=== PATIENT | female | born 1970 | race Caucasian/White ===

== ENCOUNTER 2016-06-18 18:25 | Emergency (ER) | payer OTHER ==
[~2016-06-18] VITALS: Ht 172.7 cm; Wt 162.4 kg
[~2016-06-18 18:25] MED LIST: CALCIPOTRIENE60 ML TOP; CARVEDILOL12.5 M1 PO; CLARITHROMYCIN500 M1 PO; CYMBALTA60 M1 PO; FOLIC ACID1 M1 PO; GUAIFENESIN-COD10 ML PO; LISINOPRIL30 M1 PO; LORAZEPAM0.5 M1 PO; LYRICA150 M1 PO; METHOTREXA25 MG/1 M5 SC; PANTOPRAZOLE SO40 M1 PO; PERCOCET 5-3251 EACH PO; PREDNISONE10 M2 PO; PREDNISONE50 M1 PO; PROMETHAZINE V118 M2 PO; PROVENTIL HFA6.7 GM INH; REMICADE100 MG IV; TESSALON PERLE100 M1 PO; VITAMIN D1000 UNIT PO; ZOLPIDEM TARTRAT5 M1 PO
[2016-06-18 18:27] VITALS: BP 124/74
--- NOTE | 2016-06-18 19:00 | ED UPPER/LOWER EXTREMITY COMPL ---
History of Present Illness General Chief Complaint: Lower Extremity Problems Stated Complaint: LOWER EXTREMITY PROBLEMS Source: patient Exam Limitations: no limitations Vital Signs & Intake/Output Vital Signs & Intake/Output Vital Signs Date Time Temp Pulse Resp B/P Pulse O2 O2 Flow FiO2 Ox Delivery Rate 06/18 1827 97.1 96 18 124/74 97 Room Air Allergies Coded Allergies: shellfish derived (Severe, VOMITING, FEVER, FLU LIKE SYMPTOMS SEVERELY, AND OUT OF IT 10/21/15) amitriptyline (Mild, HIVES 09/24/15) nabumetone (Mild, HIVES 09/24/15) Reconcile Medications Albuterol Sulfate (Proventil Hfa) 6.7 GM HFA.AER.AD 2 PUF INH Q4 PRN WHEEZING Calcipotriene 60 ML SOLUTION 1 ALEXIS TOP PRN PSORIATIC ARTHRITIS (Reported) Carvedilol 12.5 MG TABLET 1 TAB PO BID BP (Reported) Cholecalciferol (Vitamin D3) (Vitamin D) 1,000 UNIT TABLET 1 TAB PO DAILY SUPPLEMENT (Reported) Duloxetine HCl (Cymbalta) 60 MG CAPSULE.DR 1 CAP PO DAILY NERVE PAIN ( Reported) Folic Acid 1 MG TABLET 1 TAB PO DAILY SUPPLEMENT (Reported) Infliximab (Remicade) (Unknown Strength) VIAL (Unknown Dose) IV Q8W RA ( Reported) Lisinopril 30 MG TABLET 1 TAB PO DAILY BP (Reported) Lorazepam 0.5 MG TABLET 1 TAB PO TID PRN MUSCLE RELAXING (Reported) Methotrexate Sodium (Methotrexate) 25 MG/1 ML VIAL 0.5 ML SC QSUN RA ( Reported) Oxycodone HCl 5 MG TABLET 1 TAB PO BIDP PRN break through pain Oxycodone HCl/Acetaminophen (Percocet 5-325 MG Tablet) 1 EACH TABLET 1 TAB PO BID contusion Pantoprazole Sodium 40 MG TABLET.DR 1 TAB PO DAILY GI (Reported) Prednisone 10 MG TABLET 1 TAB PO D inflammation 4 tabs for 3 days 3 tabs for 3 days 2 tabs for 3 days One tab for 3 days Prednisone (Deltasone) 20 MG TABLET 1 TAB PO TID RA Pregabalin (Lyrica) 150 MG CAPSULE 1 CAP PO TID NERVE PAIN (Reported) Zolpidem Tartrate 5 MG TABLET 1 TAB PO QPM SLEEP (Reported) Triage Note: 45 YEAR OLD FEMALE TO ER WITH COMPLAINTS OF INCREASED BILATERAL KNEE PAIN. PT HAS HISTORY OF RA AND GOES TO PAIN MANAGEMENT BUT THE PERCOCET IS NOT HELPING Triage Nurses Notes Reviewed? yes Onset: Abrupt Duration: constant, getting worse Timing: recent history Severity: severe No Modifying Factors: none : No Patient currently breastfeeds: No HPI: 45-year-old female with a history of rheumatoid arthritis comes into the emergency room with chronic bilateral knee pain. Patient reports that she has had knee pain issues for 3 years but has had increasingly worsening symptoms over last 3 months. Denies any recent falls or trauma. Denies any redness swelling. Patient is on Remicade methotrexate Lyrica and Percocet for her pain. Patient reports today she works 7 hours and the pain was just excruciating at the end of her shift. Nonradiating. Continuous. Worse with any ambulation. (JOANNE NAVARRO) Past History Travel History Traveled to [facility] past 21 day No Medical History Any Pertinent Medical History? 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 No (JOANNE NAVARRO) Review of Systems Review of Systems Constitutional: Reports: no symptoms. EENTM: Reports: no symptoms. Respiratory: Reports: no symptoms. Cardiovascular: Reports: no symptoms. Gastrointestinal/Abdominal: Reports: no symptoms. Genitourinary: Reports: no symptoms. Musculoskeletal: Reports: see HPI. Skin: Reports: no symptoms. Neurological/Psychological: Reports: no symptoms. Hematologic/Endocrine: Reports: no symptoms. Immunological: Reports: no symptoms. All Other Systems: Reviewed and Negative (JOANNE NAVARRO) Physical Exam Physical Exam General Appearance: mild distress, obese Head: atraumatic Eyes: Bilateral: normal appearance. Ears, Nose, Throat: normal ENT inspection, hearing grossly normal Neck: normal inspection Cardiovascular/Respiratory: no respiratory distress Back: normal inspection Knee Left: soft tissue tenderness, limited range of motion Knee Right: soft tissue tenderness, limited range of motion Neurologic/Tendon: normal sensation, normal motor functions, normal tendon functions, responds to pain, no evidence tendon injury, no pulse deficit Skin: intact, normal color, warm/dry Lymphatic: no anterior cervical chivo (JOANNE NAVARRO) Progress Differential Diagnosis: arterial insufficiency, cellulitis, contusion, dislocation, fracture, gout, septic arthritis, sprain, osteoarthritis, rheumatoid arthritis, Plan of Care: Current Medications Sig/Pam Start time Last Medication Dose Stop Time Status Admin Morphine Sulfate 4 MG ONCE ONE 06/18 1914 AC (Morphine) 06/18 1915 Prednisone 60 MG ONCE ONE 06/18 1914 AC 06/18 1915 Comments: 06/18/2016 7:06:56 PM 10- 15 minutes spent at bedside discussing plan of care. Patient has chronic arthritic issues. I explained to them I do not feel x-rays are 100% necessary at this time due to no recent trauma or falls. No suspicion for fracture. I offered x-rays to patient but she agrees with my plan of care and decline. Patient be started on some high-dose prednisone as well as some breakthrough pain medication. 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 Return to the emergency room immediately if any other concerns worsening symptoms. Patient understands and agrees with plan of care. (JOANNE NAVARRO) Departure Departure Disposition: HOME OR SELF CARE Condition: Stable Clinical Impression Primary Impression: Rheumatoid arthritis Secondary Impressions: Chronic pain of both knees Referrals: DEAN LOVE,KIERRA Bliss (PCP/Family) RUFINO LOVE,RAVINDER Jones Additional Instructions: TAKE PREDNISONE AND OXYCODONE PRESCRIBED. fOLLOW-UP WITH YOUR EXPANDER WELL ORTHOPEDIC DOCTOR PROVIDED. Return to the emergency room immediately if any other concerns worsening symptoms. Please go over all results of today's visit with your primary care doctor. Contact your primary care doctor to let them know you were here in the emergency room. There may be nonspecific findings which may not be related to your visit today here in the emergency room but may require further evaluation and chronic monitoring by your primary care doctor. If you had a laceration today the chance of foreign body always remains. You should follow-up with your primary care doctor for recheck in 3-5 days for a wound check. If you had an x-ray done there is a chance that a fracture could have been missed on initial read and you should follow-up with your primary care doctor for repeat x-rays if symptoms persist. If your blood pressure was elevated here in the emergency room please have rechecked by her primary care doctor within the next 48 hours by your primary care doctor. If you were prescribed a narcotic here in the emergency room or any type of controlled substances you're not allowed to drive while taking this medication or operate any type of heavy machinery. Narcotics can make you feel lightheaded dizziness nausea and can cause constipation. You may need to pick out hand a stool softener. Thank you for choosing [facility] emergency room. Please return to the emergency room immediately if you have any other concerns worsening of symptoms. Departure Forms: Customer Survey General Discharge Information Prescriptions: Current Visit Scripts Oxycodone HCl 1 TAB PO BIDP PRN break through pain #20 TAB Prednisone (Deltasone) 1 TAB PO TID #12 MG (JOANNE NAVARRO) PA/PUMPER GAGER APPRENTICE Co-Sign Statement Statement: ED Attending supervision documentation- [] I saw and evaluated the patient. I have also reviewed all the pertinent lab results and diagnostic results. I agree with the findings and the plan of care as documented in the PA's/PUMPER GAGER APPRENTICE's documentation. [X] I have reviewed the ED Record and agree with the PA's/PUMPER GAGER APPRENTICE's documentation. [] Additions or exceptions (if any) to the PAs/PUMPER GAGER APPRENTICE's note and plan are summarized below: [] (DEYANIRA LOVE,HAN Sow)
[2016-06-18] MEDS ORDERED: DELTASONE20 MG PO (19:03)
[2016-06-18] MEDS ORDERED: OXYCODONE HCL5 M1 PO (19:03)
== END 2016-06-18 19:24 ==
LOC: ERH 18:25
DX: M06.9 Rheumatoid arthritis, unspecified (principal); M25.561 Pain in right knee; M25.562 Pain in left knee
CPT/HCPCS: 96372

== ENCOUNTER 2016-06-27 19:26 | Emergency (ER) | payer OTHER ==
[~2016-06-27] VITALS: Ht 172.7 cm; Wt 158.8 kg
[~2016-06-27 19:26] MED LIST changes: +DELTASONE20 MG PO; +OXYCODONE HCL5 M1 PO
[2016-06-27] MEDS ORDERED: OXYCODONE-ACET1 EACH PO (20:36)
--- NOTE | 2016-06-27 20:43 | ED UPPER/LOWER EXTREMITY COMPL ---
History of Present Illness General Chief Complaint: Lower Extremity Problems Stated Complaint: LEFT LEG PAIN AND SWELLING Source: patient Exam Limitations: no limitations Vital Signs & Intake/Output Vital Signs & Intake/Output Vital Signs Date Time Temp Pulse Resp B/P Pulse O2 O2 Flow FiO2 Ox Delivery Rate 06/27 2310 98.3 100 20 152/98 100 Room Air 06/27 2141 100 Room Air 06/27 1944 96.8 96 20 157/79 100 Room Air ED Intake and Output 06/28 0000 06/27 1200 Intake Total Output Total Balance Patient 350 lb Weight Allergies Coded Allergies: shellfish derived (Severe, VOMITING, FEVER, FLU LIKE SYMPTOMS SEVERELY, AND OUT OF IT 10/21/15) amitriptyline (Mild, HIVES 09/24/15) nabumetone (Mild, HIVES 09/24/15) Reconcile Medications Albuterol Sulfate (Proventil Hfa) 6.7 GM HFA.AER.AD 2 PUF INH Q4 PRN WHEEZING Calcipotriene 60 ML SOLUTION 1 ALEXIS TOP PRN PSORIATIC ARTHRITIS (Reported) Carvedilol 12.5 MG TABLET 1 TAB PO BID BP (Reported) Cephalexin (Keflex) 500 MG CAPSULE 1 CAP PO BID CELLULITIS Cholecalciferol (Vitamin D3) (Vitamin D) 1,000 UNIT TABLET 1 TAB PO DAILY SUPPLEMENT (Reported) Duloxetine HCl (Cymbalta) 60 MG CAPSULE.DR 1 CAP PO DAILY NERVE PAIN ( Reported) Folic Acid 1 MG TABLET 1 TAB PO DAILY SUPPLEMENT (Reported) Infliximab (Remicade) (Unknown Strength) VIAL (Unknown Dose) IV Q6W RA ( Reported) Lisinopril 30 MG TABLET 1 TAB PO DAILY BP (Reported) Methotrexate Sodium (Methotrexate) 25 MG/1 ML VIAL 0.3 ML SC QTHURS RA ( Reported) Oxycodone HCl/Acetaminophen (Oxycodone-Acetaminophen 5-325) 5 MG-325 MG TABLET 1 TAB PO Q8H PRN PAIN (Reported) Pantoprazole Sodium 40 MG TABLET.DR 1 TAB PO PRN GI (Reported) Pregabalin (Lyrica) 150 MG CAPSULE 1 CAP PO TID NERVE PAIN (Reported) Sulfamethoxazole/Trimethoprim (Bactrim 400-80 MG Tablet) 400 MG-80 MG TABLET 1 TAB PO BID CELLULITIS Triage Note: PT TO ED C/O INCREASED LEFT LEG SWELLING AND PAIN, GETTING WORSE OVER THE LAST WEEK. PMH OF LYMPHEDEMA. PAIN GOES UP TO GROIN. STATES REDNESS AND THICK SKIN TO CALF AREA. HAS HEALING WOULD TO LEFT ANTERIOR LOWER LEG FROM WOUND 2 YEARS AGO. AFEBRILE IN TRIAGE. STATES FEVERS AT HOME THIS WEEK UP TO 101 Triage Nurses Notes Reviewed? yes Onset: Gradual Duration: getting worse Timing: recent history Severity: moderate Severity Numbers: 5 No Modifying Factors: none : No Patient currently breastfeeds: No HPI: Patient is a 45-year-old female with past medical history of rheumatoid arthritis currently on immunomodulators Remicade, a history of lower extremity lymphedema and significant cellulitis and infections patient states that 3 months ago while shaving her left lateral aspect of her lower leg she cut her skin and which resulted in a wound that has been healing slowly however in the past 7 days she has noted redness and mild tenderness around the ulcer site. Patient also noted worsening below the knee and above the ankle left-sided swelling. Patient does note of a one-week history of fevers resolve with Tylenol. (LAMAR ZAVALA) Past History Travel History Traveled to [place] past 21 day No Medical History Any Pertinent Medical History? 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 No (LAMAR ZAVALA) Review of Systems Review of Systems Constitutional: Reports: see HPI, fever. EENTM: Reports: no symptoms. Respiratory: Reports: no symptoms. Cardiovascular: Reports: see HPI, peripheral edema. Gastrointestinal/Abdominal: Reports: no symptoms. Genitourinary: Reports: no symptoms. Musculoskeletal: Reports: no symptoms. Skin: Reports: see HPI, erythema. Neurological/Psychological: Reports: no symptoms. Hematologic/Endocrine: Reports: no symptoms. Immunological: Reports: no symptoms. All Other Systems: Reviewed and Negative (LAMAR ZAVALA) Physical Exam Physical Exam General Appearance: no apparent distress, obese Neurologic/Tendon: normal sensation, normal motor functions, normal tendon functions, responds to pain, no evidence tendon injury, no pulse deficit Skin: intact Lymphatic: no anterior cervical chivo Comments: HEENT: Normal EENT exam, Neck: Supple, no lymphadenopathy, normal range of motion without pain or tenderness Back: Nontender, no CVA tenderness. Cardiovascular: Regular rate and rhythms no murmurs rubs or gallops, normal JVP Respiratory: Chest nontender. No respiratory distress.breath sounds clear to auscultation bilaterally Abdomen: Soft, nontender nondistended, no appreciable organomegaly. Normal bowel sounds. No ascites Extremity: Bilateral lower extremity dermatomes intact pedal pulse +2 Neuro: Alert oriented x3, motor sensory normal Skin: No appreciable rash on exposed skin, skin is warm and dry. Psych: Mood and affect is normal, memory and judgment is normal. Diagram Legs Front/Back 1) Moderate below the knee and above the ankle nonpitting edema 2) 5 cm x 5 cm tenderness warmth and erythema noted no fluctuance centralized well-healing ulcer ULCERATIVE SKIN SCAB noted (LAMAR ZAVALA) Progress Differential Diagnosis: arterial insufficiency, cellulitis, CHF, compartment syndrome, contusion, dislocation, DVT, fracture, gout, septic arthritis, sprain, tendon injury Plan of Care: Orders Procedure Date/time Status BLOOD CULTURE 06/27 2057 Active COMPREHENSIVE METABOLIC PANEL 06/27 2057 Complete CBC WITHOUT DIFFERENTIAL 06/27 2057 Complete Laboratory Tests 06/27/162139: Anion Gap 10, Estimated GFR > 60, BUN/Creatinine Ratio 12.9, Glucose 96, Calcium 9.3, Total Bilirubin 0.6, AST 43 H, ALT 85 H, Alkaline Phosphatase 160 H, Total Protein 7.0, Albumin 3.6, Globulin 3.4, Albumin/Globulin Ratio 1.1, CBC w Diff NO MAN DIFF REQ, RBC 3.85 L, MCV 98.8, MCH 32.3 H, RDW 14.1, MPV 7.8, Gran % 56.1, Lymphocytes % 29.7, Monocytes % 8.5, Eosinophils % 5.1 H, Basophils % 0.6, Absolute Granulocytes 3.3, Absolute Lymphocytes 1.8, Absolute Monocytes 0.5, Absolute Eosinophils 0.3, Absolute Basophils 0, PUBS MCHC 32.7 L Microbiology 06/27 2134 BLOOD: Blood Culture - RECD 06/28 2119 BLOOD: Blood Culture - RECD At this time patient is nontoxic-appearing afebrile and has no concerns of lower extremity DVT patient has no pedal edema patient is neurovascularly intact of lower extremity. Patient however does have an extensive history of lower extremity infections and which she was given Unasyn in the ER no fever or leukocytosis noted at this time. Patient was strongly advised to return to the emergency room in 2 days for wound recheck and she will comply. Surgical pen markings boarded the area and the borders of the cellulitis to left lower extremity. (LAMAR ZAVALA) Departure Departure Disposition: HOME OR SELF CARE Condition: Stable Clinical Impression Primary Impression: Cellulitis of leg Referrals: PATIENT HAS NO PRIMARY CARE DR (PCP/Family) Additional Instructions: As discussed begin the prescription of Bactrim and Keflex as directed tomorrow as YOU HAVE received antibiotics in the emergency room today. Begin to elevate THE foot for swelling. Return to the emergency room in 2 days for wound recheck. If symptoms worsen before return to emergency room immediately. Continue home medications as directed. If the redness expands significantly beyond the surgical pen markings of your redness applied today in the emergency room return to the emergency room immediately. Departure Forms: Customer Survey General Discharge Information Prescriptions: Current Visit Scripts Sulfamethoxazole/Trimethoprim (Bactrim 400-80 MG Tablet) 1 TAB PO BID #20 TAB Cephalexin (Keflex) 1 CAP PO BID #20 CAP (LAMAR ZAVALA) PA/SPARES SCHEDULER Co-Sign Statement Statement: ED Attending supervision documentation- [] I saw and evaluated the patient. I have also reviewed all the pertinent lab results and diagnostic results. I agree with the findings and the plan of care as documented in the PA's/SPARES SCHEDULER's documentation. [x] I have reviewed the ED Record and agree with the PA's/SPARES SCHEDULER's documentation. [] Additions or exceptions (if any) to the PAs/SPARES SCHEDULER's note and plan are summarized below: [] (DAKSHA LOVE,ILA Jones)
[2016-06-27 21:50] LABS: ABSOLUTE BASOPHIL COUNT 0 /CUMM (0.0-0.2); ABSOLUTE EOSINOPHIL COUNT 0.3 /CUMM (0.0-0.7); ABSOLUTE GRANULOCYTE CT 3.3 /CUMM (1.4-6.5); WHITE BLOOD CELL COUNT 5.9 /CUMM (4.8-10.8)
[2016-06-27 21:58] LABS: ABSOLUTE LYMPH COUNT 1.8 /CUMM (1.2-3.4); ABSOLUTE MONOCYTE COUNT 0.5 /CUMM (0.10-0.60); BASOPHIL % 0.6 % (0.0-2.0); EOSINOPHIL % 5.1 % (0-5); GRANULOCYTE % 56.1 % (42.2-75.2); MEAN CORPUSCULAR HGB 32.3 PG (27.0-31.0); MEAN CORPUSCULAR HGB CONC 32.7 G/DL (33.0-37.0); MEAN CORPUSCULAR VOLUME 98.8 FL (81.0-99.0); MEAN PLATELET VOLUME 7.8 FL (7.4-10.4); PLATELET COUNT 333 /CUMM (130-400); RBC DISTRIBUTION WIDTH 14.1 % (11.5-14.5); RED BLOOD CELL CT 3.85 /CUMM (4.20-5.40)
[2016-06-27] MEDS ORDERED: KEFLEX500 M1 PO (22:38)
[2016-06-27] MEDS ORDERED: BACTRIM 400-801 EACH PO (22:38)
[2016-06-27 23:10] VITALS: BP 152/98
== END 2016-06-27 23:04 ==
LOC: ERH 19:26
PROVIDERS: Physician Assistant
DX: L03.116 Cellulitis of left lower limb (principal)
CPT/HCPCS: 87040; 96365

== ENCOUNTER 2016-08-11 17:12 | Emergency (ER) | payer OTHER ==
[~2016-08-11] VITALS: Ht 172.7 cm; Wt 158.8 kg
[~2016-08-11 17:12] MED LIST changes: +BACTRIM 400-801 EACH PO; +KEFLEX500 M1 PO; +OXYCODONE-ACET1 EACH PO
[2016-08-11 18:03] VITALS: BP 162/83
--- NOTE | 2016-08-11 19:00 | RADIOLOGY REPORT ---
EXAMINATION: XR KNEE, RIGHT CLINICAL INFORMATION: Knee injury COMPARISON: None TECHNIQUE: 5 of the right knee. FINDINGS: There is evidence of degenerative change. No convincing evidence for an acute fracture or dislocation. IMPRESSION: Degenerative changes. No fracture or dislocation is seen. Small effusion is present.
--- NOTE | 2016-08-11 19:20 | ED UPPER/LOWER EXTREMITY COMPL ---
History of Present Illness General Chief Complaint: Lower Extremity Problems Stated Complaint: R KNEE PAIN Source: patient, old records Exam Limitations: no limitations Vital Signs & Intake/Output Vital Signs & Intake/Output Vital Signs Date Time Temp Pulse Resp B/P B/P Pulse O2 O2 Flow FiO2 Mean Ox Delivery Rate 08/11 1803 97.6 97 18 162/83 96 Room Air Allergies Coded Allergies: shellfish derived (Severe, VOMITING, FEVER, FLU LIKE SYMPTOMS SEVERELY, AND OUT OF IT 10/21/15) amitriptyline (Mild, HIVES 09/24/15) nabumetone (Mild, HIVES 09/24/15) Reconcile Medications Albuterol Sulfate (Proventil Hfa) 6.7 GM HFA.AER.AD 2 PUF INH Q4 PRN WHEEZING Calcipotriene 60 ML SOLUTION 1 ALEXIS TOP PRN PSORIATIC ARTHRITIS (Reported) Carvedilol 12.5 MG TABLET 1 TAB PO BID BP (Reported) Cephalexin (Keflex) 500 MG CAPSULE 1 CAP PO BID CELLULITIS Cholecalciferol (Vitamin D3) (Vitamin D) 1,000 UNIT TABLET 1 TAB PO DAILY SUPPLEMENT (Reported) Duloxetine HCl (Cymbalta) 60 MG CAPSULE.DR 1 CAP PO DAILY NERVE PAIN ( Reported) Folic Acid 1 MG TABLET 1 TAB PO DAILY SUPPLEMENT (Reported) Infliximab (Remicade) (Unknown Strength) VIAL (Unknown Dose) IV Q6W RA ( Reported) Lisinopril 30 MG TABLET 1 TAB PO DAILY BP (Reported) Methotrexate Sodium (Methotrexate) 25 MG/1 ML VIAL 0.3 ML SC QTHURS RA ( Reported) Oxycodone HCl/Acetaminophen (Oxycodone-Acetaminophen 5-325) 5 MG-325 MG TABLET 1 TAB PO Q8H PRN PAIN (Reported) Pantoprazole Sodium 40 MG TABLET.DR 1 TAB PO PRN GI (Reported) Pregabalin (Lyrica) 150 MG CAPSULE 1 CAP PO TID NERVE PAIN (Reported) Sulfamethoxazole/Trimethoprim (Bactrim 400-80 MG Tablet) 400 MG-80 MG TABLET 1 TAB PO BID CELLULITIS Triamcinolone Acetonide 0.1 % OINT...G. 1 ALEXIS TOP BID dermatitis apply to affected area(s) Triage Note: PT TO TRIAGE WITH C/O R KNEE PAIN, R KNEE POPPED OUT TODAY, ALSO HX OF ARTHRITIS. PT TOOK PERCOCET, TYLENOL WITH NO PAIN RELIEF. PAIN 10/10. Triage Nurses Notes Reviewed? yes Onset: Abrupt Duration: day(s): (1), constant Timing: recent history Severity: moderate, severe Severity Numbers: 10 Pain/Injury Location: Right: Knee. Method of Injury: twisted Modifying Factors: Improves With: pain medication, rest. Worsens With: movement. Associated Symptoms: none HPI: 46 year old female with history of RA presents emergency room complaining of sharp severe sudden onset right knee pain after she states she twisted and felt her knee pop earlier today. She took Percocet without any improvement. Pain is 10 out of 10 she denies a numbness or tingling no hip foot or ankle pain. There is no other injury. She states she's had problems with her knees in the past and has been seen by orthopedic physicians. She denies fever chills redness warmth or rashes to her skin no chest pain or shortness of breath PT TO TRIAGE WITH C/O R KNEE PAIN, R KNEE POPPED OUT TODAY, ALSO HX OF ARTHRITIS. PT TOOK PERCOCET, TYLENOL WITH NO PAIN RELIEF. PAIN 10/10. (LAMAR SCHULER) Past History Travel History Traveled to [place] past 21 day No Medical History Any Pertinent Medical History? 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 No (LAMAR SCHULER) Review of Systems Review of Systems Constitutional: Reports: see HPI. All Other Systems: Reviewed and Negative Comments Review of systems: See HPI, All other systems negative. Constitutional, no chills no fever, no malaise no weight loss HEENT: No visual changes no sore throat no congestion, no ear pain Cardiovascular: No chest pain , no palpitation , no orthopnea Skin: no rashes, no change in skin Respiratory: No dyspnea no cough no sputum no hemoptysis GI: No nausea no vomiting, no diarrhea, no bloating/constipation : No dysuria No hematuria, no frequency, no discharge Muscle skeletal: No joint pain, no joint swelling, no back pain, no neck pain, Neurologic: No numbness no confusion, no headache Psych: No stress no depression,. Heme/endocrine: No bruising no bleeding Immunology: No lymphadenopathy (LAMAR SCHULER) Physical Exam Physical Exam General Appearance: well developed/nourished, no apparent distress, alert Comments: obese female in no apparent distress. HEENT: Atraumatic, extraocular motion intact Neck: Supple, FROM Back: FROM Cardiovascular: Regular rate and rhythms no murmurs rubs or gallops, Respiratory: Chest nontender.There were no bony deformities, no asymmetry. No respiratory distress. Patient speaking in full complete sentences. Breath sounds clear to auscultation bilaterally: NO W/R/R Upper Extremities: full range of motion Hip/Pelvis: Atraumatic/Stable. FROM. No pain with pelvic compression Knee: Atraumatic/stable. FROM. No joint swelling, no effusion. No laxity. Negative philly/anterior drawer test. No pain with ROM no overlying ecchymosis or erythema Leg: Atraumatic. Nontender. No edema, 5 out of 5 strength in the lower extremity, normal dorsiflexion of great toe bilaterally, gross sensation is intact, patellar tendon reflex 2+ bilaterally. Ankle/Foot: Atraumatic/stable. Skin intact. FROM. No swelling, no effusion. No laxity on exam Pulses: Normal/equal DP/PT pulses bilaterally. Brisk cap refill Neuro: awake, alert, and oriented to person, place and time. There were no obvious focal neurologic abnormalities. Skin: Warm & dry;No appreciable rash on exposed skin Psych: Mood affect normal, normal memory normal judgment. (LAMAR SCHULER) Progress Differential Diagnosis: dislocation, DVT, fracture, gout, septic arthritis, sprain, tendon injury Plan of Care: Current Medications Sig/Pam Start time Last Medication Dose Stop Time Status Admin Morphine Sulfate 4 MG ONCE ONE 08/11 1929 UNVr (Morphine) 08/11 1930 X-rays ordered from triage. Discussed with patient her x-ray findings I discussed with the patient at length all of their results. I had an extensive conversation regarding need for close follow up with their primary care physician this week as well as return precautions. I answered all of their questions, they feel comfortable with the plan and follow-up care. I discussed the medications that they will receive with the patient. I gave them signs and symptoms that could indicate an adverse reaction. I have advised them to limit their activities until they can see how they respond to the medication. (LAMAR SCHULER) Diagnostic Imaging: Viewed by Me: Radiology Read. Discussed w/RAD: Radiology Read. Radiology Impression: PATIENT: SEBASTIAN MICHAEL PRESENT AGE: 46 PATIENT ACCOUNT NO: [id number] : 70 LOCATION: ER ORDERING PHYSICIAN: HECTOR MONDRAGON DO (TBS) SERVICE DATE: 08/11/16 EXAM TYPE: RAD - XRY-KNEE, RIGHT EXAMINATION: XR KNEE, RIGHT CLINICAL INFORMATION: Knee injury COMPARISON: None TECHNIQUE: 5 of the right knee. FINDINGS: There is evidence of degenerative change. No convincing evidence for an acute fracture or dislocation. IMPRESSION: Degenerative changes. No fracture or dislocation is seen. Small effusion is present. DICTATED BY: HECTOR LOPEZ MD DATE/TIME DICTATED:08/11/161854 CONVENTION MANAGER:TOMY DATE/TIME TRANSCRIBED:1854 CONFIDENTIAL, DO NOT COPY WITHOUT APPROPRIATE AUTHORIZATION. < Electronically signed in Other Vendor System> SIGNED BY: HECTOR LOPEZ MD 08/11/161899 (LAMAR SCHULER) Departure Departure Time of Disposition: 1927 Disposition: HOME OR SELF CARE Condition: Stable Clinical Impression Primary Impression: Knee sprain Referrals: ISAAC LOVE,NENITA PATIENT HAS NO PRIMARY CARE DR (PCP/Family) Additional Instructions: Rest ice Tylenol Motrin. Continue taking medications as prescribed and follow- up with orthopedist Dr. li this week. leg immobilizer as discussed. return with any concerns Triamcinolone cream as discussed for your rash. This was sent to [facility] Departure Forms: Customer Survey General Discharge Information Prescriptions: Current Visit Scripts Triamcinolone Acetonide 1 ALEXIS TOP BID #1 TUBE apply to affected area(s) (LAMAR SCHULER) PA/FACILITIES SPECIALIST Co-Sign Statement Statement: ED Attending supervision documentation- [] I saw and evaluated the patient. I have also reviewed all the pertinent lab results and diagnostic results. I agree with the findings and the plan of care as documented in the PA's/FACILITIES SPECIALIST's documentation. [X] I have reviewed the ED Record and agree with the PA's/FACILITIES SPECIALIST's documentation. [] Additions or exceptions (if any) to the PAs/FACILITIES SPECIALIST's note and plan are summarized below: [] (BEBO LOVE,YOLIS)
[2016-08-11] MEDS ORDERED: TRIAMCINOLONE A15 G3 TOP (19:28)
== END 2016-08-11 19:51 ==
LOC: ERH 17:12
DX: S83.91XA Sprain of unspecified site of right knee, initial encounter (principal); X58.XXXA Exposure to other specified factors, initial encounter; Y92.9 Unspecified place or not applicable; Y93.9 Activity, unspecified
CPT/HCPCS: 73560-RT; 96372

== ENCOUNTER 2017-11-09 11:05 | Emergency (ER) | payer OTHER ==
[~2017-11-09] VITALS: Ht 172.7 cm; Wt 161.0 kg
[~2017-11-09 11:05] MED LIST changes: +BENADRYL ALLERG25 M2 PO; +CORTISONE + COO28 GM EXT; +COSENTYX P150 MG/1 M SC; +FUROSEMIDE20 M1 PO; +IBUPROFEN800 M1 PO; +KEFLEX750 M1 PO; +LISINOPRIL20 M1 PO; +NYSTATIN100000 UNI PO; +PERCOCET 7.5-31 EACH PO; +SOMA250 M1 PO; +TRIAMCINOLONE A15 G3 TOP; +ZOFRAN ODT4 M1 SL
--- NOTE | 2017-11-09 11:30 | ED MVC/FALL/TRAUMA COMPLAINT ---
History of Present Illness General Chief Complaint: Fall Stated Complaint: FALL OUT OF BED Source: patient Exam Limitations: no limitations Vital Signs & Intake/Output Vital Signs & Intake/Output Vital Signs Date Time Temp Pulse Resp B/P B/P Pulse O2 O2 Flow FiO2 Mean Ox Delivery Rate 11/09 1323 Room Air 11/09 1314 97.8 61 16 130/66 99 Room Air 11/09 1108 97.2 72 20 116/73 95 Room Air Allergies Coded Allergies: shellfish derived (Severe, VOMITING, FEVER, FLU LIKE SYMPTOMS SEVERELY, AND OUT OF IT 01/11/17) amitriptyline (Mild, HIVES 01/11/17) nabumetone (Mild, HIVES 01/11/17) Triage Note: PT TO ED C/O LEFT SHOULDER, RIGHT PALM PAIN S/P FALLING OUT OF BED THIS MORNING. PT ALSO CONCERNED WITH WOUND ON BOTTOM OF LEFT FOOT FOUND BY PT'S BOYFRIEND THIS AM. DENIES HEADSTRIKE WITH FALLING OUT OF BED. DECLINING MEDS IN TRIAGE. Triage Nurses Notes Reviewed? yes Onset: Abrupt Timing: single episode today Severity: moderate Severity Numbers: 5 HPI: Patient is a 47-year-old female with past medical history of rheumatoid arthritis who presents emergency room stating that today patient rolled out of bed accidentally and fell approximately 2-3 feet to the floor resulting acute onset of left shoulder pain right wrist and hand pain patient also noted bleeding from the left foot Patient denies any head strike neck or back pain denies any abdominal pain chest pain or lower extremity pain. Patient's concern that she has blistering to the bottom of her left foot however denies any fever chills. (Damian Villarreal) Reconcile Medications Albuterol Sulfate (Proventil Hfa) 6.7 GM HFA.AER.AD 2 PUF INH Q4 PRN WHEEZING Calcipotriene 60 ML SOLUTION 1 ALEXIS TOP BID PRN PSORIATIC ARTHRITIS (Reported) Cholecalciferol (Vitamin D3) (Vitamin D) 1,000 UNIT TABLET 1 TAB PO DAILY SUPPLEMENT (Reported) Duloxetine HCl (Cymbalta) 60 MG CAPSULE.DR 1 CAP PO DAILY NERVE PAIN ( Reported) Folic Acid 1 MG TABLET 1 TAB PO DAILY SUPPLEMENT (Reported) Furosemide 20 MG TABLET 1 TAB PO DAILY BP (Reported) Lisinopril 20 MG TABLET 1 TAB PO DAILY HTN . Meloxicam (Mobic) 15 MG TABLET 1 TAB PO DAILY PRN pain Ondansetron (Zofran Odt) 4 MG TAB.RAPDIS 1 TAB SL TID PRN NAUSEA Oxycodone HCl/Acetaminophen (Percocet 7.5-325 MG Tablet) 7.5 MG-325 MG TABLET 1 TAB PO TID PRN PAIN (Reported) Pregabalin (Lyrica) 150 MG CAPSULE 1 CAP PO TID NERVE PAIN (Reported) Secukinumab (Cosentyx Pen) 150 MG/ML PEN.INJCTR 300 MG SC Q30D PSORIATIC ARTHRITIS (Reported) (Maxime Delgado DO) Past History Travel History Traveled to [place] past 21 day No Medical History Any Pertinent Medical History? 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 No (Damian Villarreal) Review of Systems Review of Systems Constitutional: Reports: see HPI. Eyes: Reports: no symptoms. Ears, Nose, Throat, Mouth: Reports: no symptoms. Respiratory: Reports: no symptoms. Cardiovascular: Reports: no symptoms. Gastrointestinal/Abdominal: Reports: no symptoms. Genitourinary: Reports: no symptoms. Musculoskeletal: Reports: see HPI. Skin: Reports: see HPI. Neurological/Psychological: Reports: see HPI. All Other Systems: Reviewed and Negative (Damian Villarreal) Physical Exam Physical Exam General Appearance: no apparent distress, obese Head: atraumatic Eyes: Bilateral: normal appearance, PERRL. Ears, Nose, Throat, Mouth: hearing grossly normal, moist mucous membrane Neck: normal inspection, full range of motion, no midline tenderness Respiratory: normal breath sounds, chest non-tender Cardiovascular: regular rate/rhythm Gastrointestinal: normal bowel sounds, non-tender Neurologic/Psych: no motor/sensory deficits, awake, alert Comments: Right shoulder normal inspection nontender Right elbow normal inspection nontender Right wrist generalized point tenderness noted limited range of motion Left shoulder normal inspection generalized point tenderness noted mild decreased active range of motion Left elbow wrist and hands normal inspection nontender Bilateral lower extremities myotomes dermatomes intact full active range of motion nontender Diagram Feet, Bilateral: 1) Noted 5 mm well-healing ecchymotic skin blister 2) Noted partial tear of a skin blister with dried blood no surrounding erythema or warmth or tenderness Core Measures ACS in differential dx? No CVA/TIA Diagnosis No Sepsis Present: No Sepsis Focused Exam Completed? No (Elvi BALDWIN,Damian) Progress Differential Diagnosis: aoritic dissection, abd injury, C/T/L spine injury, ext injury, ICH, pelvis injury, pnemothorax, spinal cord injury Plan of Care: Current Medications Sig/Pam Start time Last Medication Dose Stop Time Status Admin Ibuprofen 600 MG ONCE ONE 11/09 1244 UNVr (Motrin) 11/09 124 Patient will be x-rayed for where she was point tenderness on exam The left foot was irrigated with sterile water and peroxide, Telfa and bandage was applied X-rays were unremarkable for osseous injury wrist splint was applied to the right wrist Pre-and post neurovascular was intact Patient will follow up with her established orthopedic doctor Diagnostic Imaging: Viewed by Me: Radiology Read. Radiology Impression: no acute abnormality, no fracture Comments: PATIENT: SEBASTIAN MICHAEL PRESENT AGE: 47 PATIENT ACCOUNT NO: [id number] : 70 LOCATION: [facility] ORDERING PHYSICIAN: Damian BALDWIN SERVICE DATE: 11/09/17 EXAM TYPE: RAD - XRY-SHOULDER COMPLETE-LEFT; XRY-WRIST COMPLETE-RIGHT EXAMINATION: XR WRIST, RIGHT AND SHOULDER, LEFT CLINICAL INFORMATION: Status post fall. Pain. COMPARISON: None TECHNIQUE: 4 views of the left shoulder. 4 views of the right wrist FINDINGS: Right wrist: An arrow points to the radial aspect of the wrist/base of thumb. There is no evidence of fracture or dislocation. Alignment is anatomic. Joint spaces are maintained. No significant degenerative changes are visualized. Left shoulder: There is no fracture or dislocation. The glenohumeral and acromioclavicular joints are maintained. Mild degenerative change of the acromioclavicular joint. The visualized ribs are intact. IMPRESSION: No evidence of fracture or dislocation involving the right wrist or left shoulder. DICTATED BY: Lesa Hernandez MD DATE/TIME DICTATED:11/09/171246 SWITCH ADJUSTER:TOMY DATE/TIME TRANSCRIBED:11/09/171246 (Damian Villarreal) Departure Departure Disposition: HOME OR SELF CARE Condition: Stable Clinical Impression Primary Impression: Right wrist pain Secondary Impressions: Blister of foot, left, Fall, Left shoulder pain Referrals: Mike Mckeon MD (PCP/Family) Additional Instructions: As discussed begin icing the area directly 20 minutes every 2 hours, begin the prescription meloxicam for pain, begin using the wrist splint for stability and support, follow-up with your established orthopedic doctor next week if no better. If symptoms worsen return to emergency room Prescriptions waiting at [facility] Monitor the left foot for signs infection such as redness, pain, swelling, discharge if so return to emergency room change the dressings once today with the extra bandages provided to the emergency room and apply bacitracin to the region. Departure Forms: Customer Survey General Discharge Information Prescriptions: Current Visit Scripts Meloxicam (Mobic) 1 TAB PO DAILY PRN pain #7 TAB (Damian Villarreal) PA/MULTI SITE LEASING CONSULTANT Co-Sign Statement Statement: ED Attending supervision documentation- [] I saw and evaluated the patient. I have also reviewed all the pertinent lab results and diagnostic results. I agree with the findings and the plan of care as documented in the PA's/MULTI SITE LEASING CONSULTANT's documentation. [x] I have reviewed the ED Record and agree with the PA's/MULTI SITE LEASING CONSULTANT's documentation. [] Additions or exceptions (if any) to the PAs/MULTI SITE LEASING CONSULTANT's note and plan are summarized below: [] (Maxime Delgado DO)
[2017-11-09] MEDS ORDERED: PERCOCET 7.5-31 EACH PO (12:05)
--- NOTE | 2017-11-09 12:53 | RADIOLOGY REPORT ---
EXAMINATION: XR WRIST, RIGHT AND SHOULDER, LEFT CLINICAL INFORMATION: Status post fall. Pain. COMPARISON: None TECHNIQUE: 4 views of the left shoulder. 4 views of the right wrist FINDINGS: Right wrist: An arrow points to the radial aspect of the wrist/base of thumb. There is no evidence of fracture or dislocation. Alignment is anatomic. Joint spaces are maintained. No significant degenerative changes are visualized. Left shoulder: There is no fracture or dislocation. The glenohumeral and acromioclavicular joints are maintained. Mild degenerative change of the acromioclavicular joint. The visualized ribs are intact. IMPRESSION: No evidence of fracture or dislocation involving the right wrist or left shoulder.
[2017-11-09] MEDS ORDERED: MOBIC15 M1 PO (13:03)
[2017-11-09 13:14] VITALS: BP 130/66
[2017-11-10] MEDS ORDERED: METHOTREXA25 MG/1 M2 SC (21:27)
[2017-11-10] MEDS ORDERED: PREDNISONE5 M1 PO (21:28)
[2017-11-10] MEDS ORDERED: NORVASC2.5 M1 PO (21:29)
[2017-11-10] MEDS ORDERED: VITAMIN B COMP1 EACH PO (21:30)
[2017-11-10] MEDS ORDERED: LORAZEPAM0.5 M1 PO (21:30)
[2017-11-10] MEDS ORDERED: FAMOTIDINE20 M1 PO (21:31)
[2017-11-10] MEDS ORDERED: CYCLOBENZAPRINE10 M1 PO (21:31)
[2017-11-10] MEDS ORDERED: LISINOPRIL30 M1 PO (21:32)
[2017-11-10] MEDS ORDERED: OMEPRAZOLE20 M2 PO (21:33)
[2017-11-10] MEDS ORDERED: PERCOCET 5-3251 EACH PO (21:34)
[2017-11-10] MEDS ORDERED: PROAIR HFA8.5 GM INH (21:35)
[2017-11-10] MEDS ORDERED: PROBIOTIC1 EACH PO (21:36)
[2017-11-10] MEDS ORDERED: PERCOCET 7.5-31 EACH PO (21:39)
[2017-11-10] MEDS ORDERED: TIZANIDINE HCL6 MG PO (21:41)
[2017-11-10] MEDS ORDERED: CARVEDILOL12.5 M1 PO (21:42)
== END 2017-11-09 13:24 ==
LOC: ERH 11:05
DX: S90.822A Blister (nonthermal), left foot, initial encounter (principal); M25.531 Pain in right wrist; M25.512 Pain in left shoulder; W06.XXXA Fall from bed, initial encounter
CPT/HCPCS: 73030-LT; 73110-RT

== ENCOUNTER 2017-11-10 21:06 | Emergency (ER) | payer OTHER ==
[~2017-11-10] VITALS: Ht 172.7 cm; Wt 158.8 kg
[~2017-11-10 21:06] MED LIST changes: +MOBIC15 M1 PO
[2017-11-10] MEDS ORDERED: METHOTREXA25 MG/1 M2 SC (21:27)
[2017-11-10] MEDS ORDERED: PREDNISONE5 M1 PO (21:28)
[2017-11-10] MEDS ORDERED: NORVASC2.5 M1 PO (21:29)
[2017-11-10] MEDS ORDERED: VITAMIN B COMP1 EACH PO (21:30)
[2017-11-10] MEDS ORDERED: LORAZEPAM0.5 M1 PO (21:30)
[2017-11-10] MEDS ORDERED: FAMOTIDINE20 M1 PO (21:31)
[2017-11-10] MEDS ORDERED: CYCLOBENZAPRINE10 M1 PO (21:31)
[2017-11-10] MEDS ORDERED: LISINOPRIL30 M1 PO (21:32)
[2017-11-10] MEDS ORDERED: OMEPRAZOLE20 M2 PO (21:33)
[2017-11-10] MEDS ORDERED: PERCOCET 5-3251 EACH PO (21:34)
[2017-11-10] MEDS ORDERED: PROAIR HFA8.5 GM INH (21:35)
[2017-11-10] MEDS ORDERED: PROBIOTIC1 EACH PO (21:36)
[2017-11-10] MEDS ORDERED: PERCOCET 7.5-31 EACH PO (21:39)
[2017-11-10] MEDS ORDERED: TIZANIDINE HCL6 MG PO (21:41)
[2017-11-10] MEDS ORDERED: CARVEDILOL12.5 M1 PO (21:42)
--- NOTE | 2017-11-10 22:06 | ED UPPER/LOWER EXTREMITY COMPL ---
History of Present Illness General Chief Complaint: General Adult Stated Complaint: "UNCONTROLLABLY SHAKING IN LIMBS DROPPING THINGS" Source: patient Exam Limitations: no limitations Vital Signs & Intake/Output Vital Signs & Intake/Output Vital Signs Date Time Temp Pulse Resp B/P B/P Pulse O2 O2 Flow FiO2 Mean Ox Delivery Rate 11/10 2330 75 20 117/75 96 Room Air 11/10 2235 Room Air 11/10 2118 98.8 78 18 127/47 96 Room Air ED Intake and Output 11/11 0000 11/10 1200 Intake Total 0 Output Total Balance 0 Intake, Oral 0 Patient 350 lb Weight Weight Estimated Measurement Method Allergies Coded Allergies: shellfish derived (Severe, VOMITING, FEVER, FLU LIKE SYMPTOMS SEVERELY, AND OUT OF IT 11/11/17) amitriptyline (Mild, HIVES 11/11/17) nabumetone (Mild, HIVES 11/11/17) Reconcile Medications Albuterol Sulfate (Proair Hfa) 90 MCG HFA.AER.AD 4 PUFF INH AD PRN RESP. ( Reported) Amlodipine (Norvasc) 2.5 MG TABLET 1 TAB PO DAILY BP (Reported) Calcipotriene 60 ML SOLUTION 1 ALEXIS TOP BID PRN PSORIATIC ARTHRITIS (Reported) Carvedilol 12.5 MG TABLET 1 TAB PO BID UNKNOWN (Reported) Cholecalciferol (Vitamin D3) (Vitamin D) 1,000 UNIT TABLET 1 TAB PO DAILY SUPPLEMENT (Reported) Duloxetine HCl (Cymbalta) 60 MG CAPSULE.DR 1 CAP PO DAILY NERVE PAIN ( Reported) Famotidine 20 MG TABLET 1 TAB PO PRN GI (Reported) Folic Acid 1 MG TABLET 2 TAB PO DAILY SUPPLEMENT (Reported) Furosemide 20 MG TABLET 1 TAB PO DAILY BP (Reported) Lactobacillus Acidophilus (Probiotic) (Unknown Strength) CAPSULE (Unknown Dose ) PO DAILY PROBIOTIC (Reported) Lisinopril 30 MG TABLET 1 TAB PO DAILY BP (Reported) Lorazepam 0.5 MG TABLET 1 MG PO AD PRIOR TO PROCEDURE-ANXIETY (Reported) Meloxicam (Mobic) 15 MG TABLET 1 TAB PO DAILY PRN pain Methotrexate Sodium/Pf (Methotrexate 25 MG/Ml Vial) 25 MG/ML VIAL 7.5 MG SC QSAT RA (Reported) Omeprazole 20 MG CAPSULE.DR 1 CAP PO PRN GI (Reported) Oxycodone HCl/Acetaminophen (Percocet 7.5-325 MG Tablet) 7.5 MG-325 MG TABLET 1 TAB PO Q6H PRN PAIN (Reported) Prednisone 5 MG TABLET 1 TAB PO DAILY STEROID (Reported) Pregabalin (Lyrica) 150 MG CAPSULE 1 CAP PO TID NERVE PAIN (Reported) Secukinumab (Cosentyx Pen) 150 MG/ML PEN.INJCTR 300 MG SC Q28D PSORIATIC ARTHRITIS (Reported) Tizanidine HCl 6 MG CAPSULE 1 CAP PO TID PRN MUSCLE SPASMS (Reported) Vitamin B Complex 1 EACH CAPSULE 1 CAP PO DAILY SUPPLEMENT (Reported) Triage Note: RECEIVED 47 YO FEMALE WAS HERE YESTERDAY FOR FALLING OUT OF BED. PT REPORTS SEVERE SHAKING OF BODY AND EXTREMITIES, WORSE SINCE YESTERDAY. PT REPORTS SOME SHAKING X 6 MONTHS. PT DENIES CHEST PAIN, SOB. Triage Nurses Notes Reviewed? yes HPI: Patient presents for evaluation of abnormal movements of the upper extremities. Patient states that she has had "shaking" and "tremors" in her limbs intermittently over the past 6 months. Patient states recently the movements of become more severe. She was evaluated in the emergency department yesterday after a fall. Outside of this though she states that she has been dropping things and occasionally seems that her legs are too weak to support her. Patient denies any alcohol or drug use. She states she has yet to be evaluated for her symptoms over the past 6 months. Nothing seems to make her symptoms improve. Past History Travel History Traveled to [place] past 21 day No Medical History Any Pertinent Medical History? see below for history Neurological: migraine EENT: allergies Cardiovascular: hypertension Respiratory: NONE Gastrointestinal: diverticulitis, ACID REFLUX Hepatic: NONE Renal: NONE Musculoskeletal: rheumatoid arthritis, FIBROMYALGIA Psoriatic arthritis Psychiatric: NONE Endocrine: obesity Blood Disorders: NONE Cancer(s): NONE CNA HOSPICE/Reproductive: NONE History of MRSA: No History of VRE: No History of CDIFF: No Surgical History Surgical History: hysterectomy, back surgery Psychosocial History Who do you live with Family Services at Home None What is your primary language Venezuelan Tobacco Use: Never used Family History Hx Contributory? No Review of Systems Review of Systems Constitutional: Reports: no symptoms. EENTM: Reports: no symptoms. Respiratory: Reports: no symptoms. Cardiovascular: Reports: no symptoms. Gastrointestinal/Abdominal: Reports: no symptoms. Genitourinary: Reports: no symptoms. Musculoskeletal: Reports: no symptoms. Skin: Reports: no symptoms. Neurological/Psychological: Reports: see HPI. Hematologic/Endocrine: Reports: no symptoms. Immunological: Reports: no symptoms. All Other Systems: Reviewed and Negative Physical Exam Physical Exam General Appearance: see below Comments: Gen.: Well-nourished, well-developed, no acute respiratory distress. Head: Normocephalic, atraumatic. Eyes: Normal inspection bilaterally, PERRLA, EOMI Ears: Normal inspection bilaterally Nose: Normal inspection Throat/mouth : Moist mucosa Neck: Supple, full range of motion, no goiter Heart: Regular rate and rhythm, no murmurs rubs or gallops Lungs: Clear to auscultation bilaterally with normal air entry Chest: Nontender Back: Normal range of motion Abdomen: Nondistended, normal bowel sounds Extremities: Normal range of motion grossly, equal radial pulses, no cyanosis clubbing or edema, equal hand grasp, no pronator drift, no dysmetria Neurologic: Cranial nerves 2 through 12 intact, speech is clear and without apparent aphasia, gait is stable Skin: warm and dry Psychiatric: Calm, cooperative, no apparent delusions or hallucinations Progress Differential Diagnosis: pARKINSON DISEASE, ANXIETY, MEDICATION SIDE EFFECT, ELECTROLYTE ABNORMALITY, HYPERTHYROIDISM Plan of Care: Orders Procedure Date/time Status URINE DRUG SCREEN FOR ER ONLY 11/10 2224 Complete URINALYSIS 11/10 2224 Complete TSH REFLEX 11/10 2224 Complete MAGNESIUM 11/10 2224 Complete ETHANOL 11/10 2224 Complete CBC WITHOUT DIFFERENTIAL 11/10 2224 Complete BASIC METABOLIC PANEL 11/10 2224 Complete Laboratory Tests 11/10/17 2249: Urine Opiates Screen 1231.00, Methadone Screen 109, Barbiturate Screen < 60, Ur Phencyclidine Scrn < 6.00, Amphetamines Screen < 100, U Benzodiazepines Scrn < 85, Urine Cocaine Screen < 50, Urine Cannabis Screen < 5.00, Urine Color YEL, Urine Clarity CLDY H, Urine pH 6.0, Ur Specific Bryan 1.025, Urine Protein TRACE H, Urine Ketones TRACE H, Urine Nitrite NEG, Urine Bilirubin NEG, Urine Urobilinogen 0.2, Ur Leukocyte Esterase TRACE H, Ur Microscopic SEDIMENT EXAMINED, Urine RBC FEW H, Urine WBC 3-5 H, Ur Epithelial Cells MANY H, Urine Bacteria MANY H, Hyaline Casts 1-3 H, Urine Hemoglobin NEG, Urine Glucose NEG 11/10/174: Anion Gap 10, Estimated GFR 53 L, BUN/Creatinine Ratio 18.2, Glucose 98, Calcium 9.1, Magnesium 2.2, TSH &T3 &Free T4 Intrp 0.445, CBC w Diff NO MAN DIFF REQ, RBC 3.66 L, MCV 93.8, MCH 30.6, MCHC 32.7 L, RDW 18.0 H, MPV 8.5, Gran % 65.5, Lymphocytes % 20.4 L, Monocytes % 8.6, Eosinophils % 4.6, Basophils % 0.9 , Absolute Granulocytes 3.7, Absolute Lymphocytes 1.2, Absolute Monocytes 0.5, Absolute Eosinophils 0.3, Absolute Basophils 0.1, Serum Alcohol < 10.0 Comments: 11/10/2017 11:08:47 PM a few moments ago and was asked evaluate Alexandra because she fell in the bathroom. She denied loss of consciousness but states she was managed to grab onto the sink and lower herself down onto her bottom. Physical examination reveals no tenderness over the lumbosacral spine. There is no abrasions or ecchymoses or soft tissue swelling. 11/10/2017 11:59:39 PM patient's case discussed with Dr. Syed who will evaluate Alexandra in the office tomorrow. Departure Departure Disposition: HOME OR SELF CARE Condition: Stable Clinical Impression Primary Impression: Abnormal movements Referrals: Mike LOVE,Mike (PCP/Family) Yahaira LOVE,Tello Additional Instructions: Follow-up with Dr. Syed tomorrow as discussed. Notify your primary care doctor of this emergency department visit and treatment plan. Return if any concerns or sudden worsening. Please note that there might be incidental findings in your evaluation that are unrelated to the current emergency department visit. Please notify your primary care doctor about this emergency department visit in order to obtain and review all of the testing performed so that these incidental findings can be monitored as needed. If you had an x-ray performed, please understand that some fractures or other findings may not be seen on the initial set of x-rays. If your symptoms persist you might need a repeat set of x-rays to check for such a fracture. If you had a laceration evaluated, please understand that foreign bodies such as glass or wood may not be visible to the naked eye or on plain x-rays. If the wound becomes red, swollen, increasingly more painful or if there is any drainage from the wound, please have it reevaluated by a physician for the possibility of a retained foreign body. If you're unable to follow up as outlined in the discharge instructions please return to the emergency department. Thank you for choosing the [facility] Emergency Department for your care. It was a pleasure to serve you today. Bam Samuels M.D. [facility] Departure Forms: Customer Survey General Discharge Information
[2017-11-10 22:49] LABS: ABSOLUTE BASOPHIL COUNT 0.1 /CUMM (0.0-0.2); ABSOLUTE EOSINOPHIL COUNT 0.3 /CUMM (0.0-0.7); ABSOLUTE GRANULOCYTE CT 3.7 /CUMM (1.4-6.5); ABSOLUTE LYMPH COUNT 1.2 /CUMM (1.2-3.4); ABSOLUTE MONOCYTE COUNT 0.5 /CUMM (0.10-0.60); BASOPHIL % 0.9 % (0.0-2.0); EOSINOPHIL % 4.6 % (0-5); GRANULOCYTE % 65.5 % (42.2-75.2); HEMATOCRIT 34.4 % (37-47); MEAN CORPUSCULAR HGB 30.6 PG (27.0-31.0); MEAN CORPUSCULAR HGB CONC 32.7 G/DL (33.0-37.0); MEAN CORPUSCULAR VOLUME 93.8 FL (81.0-99.0); MEAN PLATELET VOLUME 8.5 FL (7.4-10.4); PLATELET COUNT 238 /CUMM (130-400); RED BLOOD CELL CT 3.66 /CUMM (4.20-5.40); WHITE BLOOD CELL COUNT 5.7 /CUMM (4.8-10.8)
[2017-11-10 23:30] VITALS: BP 117/75
== END 2017-11-11 00:04 ==
LOC: ERH 21:06
PROVIDERS: Emergency Medicine
DX: R25.1 Tremor, unspecified (principal)
CPT/HCPCS: 80307; 81001; G0480